=== PATIENT | male | born 1985 | race African-American/Black ===

== ENCOUNTER 2016-08-21 11:09 | Emergency (ER) | payer SELFPAY ==
[~2016-08-21] VITALS: Ht 180.3 cm; Wt 70.9 kg
[~2016-08-21 11:09] MED LIST: DOXYCYCLINE HY100 MG PO; NOHOMEMEDS; PROMETHAZINE HC25 M1 PO
[2016-08-21 12:41] LABS: ADD MIUA? YES; BILIRUBIN NEGATIVE; BLOOD NEGATIVE; COLOR AMBER ((YELLOW)); GLUCOSE (STRIP) NEGATIVE; KETONES NEGATIVE; LEUKOCYTES NEGATIVE; NITRITE POSITIVE; PROTEIN (STRIP) 30; SPECIFIC GRAVITY 1.026 (1.000-1.030)
[2016-08-21 12:58] LABS: BACTERIA RARE /HPF; EPITHELIAL CELLS NONE SEEN /HPF; HYALINE CASTS 0-5 /LPF; MUCUS 3+ /LPF; RED BLOOD CELLS 0-5 /HPF (0-5); UCUL ADDED? NO; WHITE BLOOD CELLS 0-5 /HPF (0-5)
[2016-08-21 14:38] VITALS: BP 136/73
[2016-08-23 12:52] LABS: CHLAMYDIA TRACHOMATIS NEGATIVE; NEISSERIA GONORRHOEAE NEGATIVE
== END 2016-08-21 14:20 | disposition home or self-care (01) ==
LOC: EME 11:09
DX: N39.0 Urinary tract infection, site not specified (principal); R59.0 Localized enlarged lymph nodes; F17.200 Nicotine dependence, unspecified, uncomplicated
CPT/HCPCS: 81003; 87491; 87591; 99281; 99284; J0696